=== PATIENT | female | born 1995 | race Caucasian/White ===

== ENCOUNTER 2018-04-22 01:07 | Emergency (ER) | payer MEDICAID ==
[~2018-04-22] VITALS: Ht 152.4 cm; Wt 56.7 kg
[~2018-04-22 01:07] MED LIST: IBUPROFEN400 MG PO; MOTRIN800 MG PO
[2018-04-22 01:09] VITALS: Ht 152.4 cm; Wt 56.7 kg
[2018-04-22 05:12] LABS: BASOPHIL % 0.7 % (0-2); PLATELET COUNT 209 x10^3mcL (130-400); RED CELL DISTRIBUTION WIDTH 13.1 % (11.5-14.5)
[2018-04-22 05:19] LABS: CALCIUM 8.9 mg/dL (8.5-10.1); CHLORIDE SERUM 104 mmol/L (98-107); CREATININE SERUM 0.6 mg/dL (0.6-1.0); GFR1 > 60 mL/min; GLUCOSE SERUM 84 mg/dL (74-106); POTASSIUM SERUM 3.5 mmol/L (3.5-5.1); SODIUM SERUM 139 mmol/L (136-145)
[2018-04-22 05:25] LABS: ALBUMIN 4.1 g/dL (3.4-5.0); ALKALINE PHOSPHATASE 98 U/L (46-116); ALT/SGPT 17 U/L (14-59); AST/SGOT 16 U/L (15-37); BILIRUBIN TOTAL 0.31 mg/dL (0.20-1.00); TOTAL PROTEIN, SERUM 7.3 g/dL (6.4-8.2)
[2018-04-22 06:24] VITALS: BP 111/71
== END 2018-04-22 06:24 | disposition home or self-care (01) ==
LOC: ED 01:07
PROVIDERS: Emergency Medicine
DX: R07.2 Precordial pain (principal); Z90.49 Acquired absence of other specified parts of digestive tract
CPT/HCPCS: 36415; J1885

== ENCOUNTER 2018-05-26 20:39 | Emergency (ER) | payer MEDICAID ==
[~2018-05-26] VITALS: Ht 152.4 cm; Wt 57.7 kg
[2018-05-26 21:12] VITALS: Ht 152.4 cm; Wt 57.7 kg
[2018-05-26 23:27] LABS: UA SPECIFIC GRAVITY >=1.030 (1.005-1.035); microscopic required? YES; urine erythrocyte 3+ (NEGATIVE)
[2018-05-27 00:01] VITALS: BP 111/68
== END 2018-05-27 00:01 | disposition home or self-care (01) ==
LOC: ED 20:39
PROVIDERS: Emergency Medicine
DX: N39.0 Urinary tract infection, site not specified (principal); B37.3 Candidiasis of vulva and vagina

== ENCOUNTER 2018-11-28 23:13 | Emergency (ER) | payer MEDICAID ==
[~2018-11-28] VITALS: Ht 152.4 cm; Wt 56.7 kg
[2018-11-28 23:44] VITALS: Ht 152.4 cm; Wt 56.7 kg
[2018-11-29 04:43] VITALS: BP 113/69
== END 2018-11-29 04:43 | disposition home or self-care (01) ==
LOC: ED 23:13
DX: N83.202 Unspecified ovarian cyst, left side (principal); Z90.89 Acquired absence of other organs
CPT/HCPCS: J1885

== ENCOUNTER 2019-03-26 19:43 | Emergency (ER) | payer MEDICAID ==
[~2019-03-26] VITALS: Ht 152.4 cm; Wt 58.5 kg
[2019-03-26 20:12] VITALS: Ht 152.4 cm; Wt 58.5 kg
[2019-03-26 20:53] LABS: BASOPHIL % 0.6 % (0-2); PLATELET COUNT 175 x10^3mcL (130-400)
[2019-03-26 20:59] LABS: microscopic required? YES; urine erythrocyte TRACE (NEGATIVE)
[2019-03-26 22:23] VITALS: BP 113/53
== END 2019-03-26 22:23 | disposition home or self-care (01) ==
LOC: ED 19:43
PROVIDERS: Emergency Medicine
DX: O20.0 Threatened abortion (principal); Z90.89 Acquired absence of other organs
CPT/HCPCS: 36415; 87491; 87591

== ENCOUNTER 2019-04-27 18:12 | Emergency (ER) | payer MEDICAID ==
[~2019-04-27] VITALS: Ht 152.4 cm; Wt 60.8 kg
[2019-04-27 18:37] VITALS: BP 127/88; Ht 152.4 cm; Wt 60.8 kg
== END 2019-04-27 20:20 | disposition left against medical advice (07) ==
LOC: ED 18:12
DX: Z53.21 Procedure and treatment not carried out due to patient leaving prior to being seen by health care provider (principal)

== ENCOUNTER 2019-11-10 17:43 | Emergency (ER) | payer MEDICAID ==
[~2019-11-10] VITALS: Ht 152.4 cm; Wt 61.2 kg
[2019-11-10 17:49] VITALS: Ht 152.4 cm; Wt 61.2 kg
[2019-11-10 18:51] LABS: PLATELET COUNT 218 x10^3mcL (130-400); RED CELL DISTRIBUTION WIDTH 12.7 % (11.5-14.5)
[2019-11-10 19:07] LABS: CALCIUM 9.2 mg/dL (8.5-10.1); CARBON DIOXIDE 28.5 mmol/L (21-32); CHLORIDE SERUM 102 mmol/L (98-107); CREATININE SERUM 0.6 mg/dL (0.6-1.0); GFR1 > 60 mL/min; GLUCOSE SERUM 81 mg/dL (74-106); POTASSIUM SERUM 3.5 mmol/L (3.5-5.1); SODIUM SERUM 139 mmol/L (136-145)
[2019-11-10 19:12] LABS: ALBUMIN 4.4 g/dL (3.4-5.0); ALKALINE PHOSPHATASE 73 U/L (46-116); ALT/SGPT 23 U/L (14-59); AST/SGOT 16 U/L (15-37); BILIRUBIN TOTAL 0.35 mg/dL (0.20-1.00); LIPASE 121 IU/L (73-393); TOTAL PROTEIN, SERUM 8.5 g/dL (6.4-8.2)
[2019-11-10 19:58] LABS: UA SPECIFIC GRAVITY <=1.005 (1.005-1.035); microscopic required? YES; urine erythrocyte 3+ (NEGATIVE)
[2019-11-10 20:52] VITALS: BP 123/86
== END 2019-11-10 20:52 | disposition home or self-care (01) ==
LOC: ED 17:43
PROVIDERS: Emergency Medicine
DX: O23.41 Unspecified infection of urinary tract in pregnancy, first trimester (principal); O26.891 Other specified pregnancy related conditions, first trimester; R10.32 Left lower quadrant pain; Z3A.00 Weeks of gestation of pregnancy not specified
CPT/HCPCS: 36415

== ENCOUNTER 2019-11-13 13:40 | Emergency (ER) | payer OTHER ==
[~2019-11-13] VITALS: Ht 152.4 cm; Wt 61.2 kg
[2019-11-13 14:04] VITALS: Ht 152.4 cm; Wt 61.2 kg
[2019-11-13 14:49] LABS: UA SPECIFIC GRAVITY 1.025 (1.005-1.035); microscopic required? YES; urine erythrocyte 3+ (NEGATIVE)
[2019-11-13 16:12] LABS: BASOPHIL % 0.2 % (0-2); PLATELET COUNT 222 x10^3mcL (130-400); RED CELL DISTRIBUTION WIDTH 12.6 % (11.5-14.5)
[2019-11-13 16:35] LABS: ALBUMIN 3.7 g/dL (3.4-5.0); ALKALINE PHOSPHATASE 60 U/L (46-116); ALT/SGPT 19 U/L (14-59); AST/SGOT 14 U/L (15-37); BILIRUBIN TOTAL 0.3 mg/dL (0.20-1.00); CALCIUM 8.7 mg/dL (8.5-10.1); CARBON DIOXIDE 25.1 mmol/L (21-32); CHLORIDE SERUM 104 mmol/L (98-107); CREATININE SERUM 0.7 mg/dL (0.6-1.0); GFR1 > 60 mL/min; GLUCOSE SERUM 74 mg/dL (74-106); POTASSIUM SERUM 3.5 mmol/L (3.5-5.1); SODIUM SERUM 137 mmol/L (136-145); TOTAL PROTEIN, SERUM 7.3 g/dL (6.4-8.2)
[2019-11-13 18:40] VITALS: BP 106/77
== END 2019-11-13 18:40 | disposition home or self-care (01) ==
LOC: ED 13:40
PROVIDERS: Emergency Medicine
DX: O23.00 Infections of kidney in pregnancy, unspecified trimester (principal); N12 Tubulo-interstitial nephritis, not specified as acute or chronic
CPT/HCPCS: J0696; J7060